=== PATIENT | female | born 1990 | race Caucasian/White ===

== ENCOUNTER 2016-09-17 15:57 | Emergency (ER) | payer OTHER ==
[2016-09-17 16:20] VITALS: RESP 18; TEMP 97.8
[2016-09-17 17:55] LABS: Basophils # (A) 0.1 k/uL (0-0.2); Basophils % (A) 1 %; CH 29.3; CHCM 34.2; Eosinophils # (A) 0.2 k/uL (0-0.7); Eosinophils % (A) 2 %; HCT 41.3 % (34.0-46.0); HDW 2.48; HGB 13.8 gm/dL (11.4-16.0); Luc # (Auto) 0.13; Luc % (Auto) 1; Lymphocytes # (A) 2.9 k/uL (1.0-4.8); Lymphocytes % (A) 33 %; MCH 28.6 pg (25.0-35.0); MCHC 33.3 g/dL (31.0-37.0); Mean Platelet Volume 7.5; Monocytes # (A) 0.4 k/uL (0-1.0); Monocytes % (A) 4 %; Neutrophils # (A) 5.3 k/uL (1.3-7.7); Neutrophils % (A) 59 %; RDW 12.6 % (11.5-15.5); WBC (Perox) 8.88
[2016-09-17 18:04] LABS: ALT 34 U/L (9-52); AST 18 U/L (14-36); Alkaline Phosphatase 73 U/L (38-126); Amylase 41 U/L (30-110); Anion Gap 11 mmol/L; Blood Urea Nitrogen 12 mg/dL (7-17); Calcium 9.9 mg/dL (8.4-10.2); Carbon Dioxide 26 mmol/L (22-30); Chloride 103 mmol/L (98-107); Glucose 95 mg/dL (74-99); Non-African American GFR(MDRD) >60 (>60 ml/min/1.73 sqM); Potassium 4.6 mmol/L (3.5-5.1); Sodium 140 mmol/L (137-145); Total Bilirubin 0.5 mg/dL (0.2-1.3)
--- NOTE | 2016-09-17 19:02 | ED ---
Chest Pain HPI - General Chief Complaint: Chest Pain Stated Complaint: burning sensation in chest Time Seen by Provider: 09/17/16 17:00 Source: patient, RN notes reviewed Mode of arrival: ambulatory Limitations: no limitations - History of Present Illness Initial Comments: This patient is a 25-year-old woman who presents to be evaluate for chest pain which is been going on since last night. She indicates the sternal and right chest. She states the pain is moderate, worse with movement or with palpation, aching and sharp. The patient has not noted any relieving factors. It is currently moderate in intensity. Patient does note that she had been having about a week of cough and congestion. MD Complaint: chest pain -: days(s) Onset: during rest Pain Location: right chest Pain Radiation: none Severity: moderate Quality: aching Consistency: constant Improves With: nothing Worsens With: palpation Context: recent illness Other Symptoms: cough Treatments Prior to Arrival: none - Related Data Home Medications Medication Instructions Recorded Confirmed Atenolol 100 mg PO HS 07/01/15 09/17/16 SUMAtriptan SUCCINATE [Imitrex] 100 mg PO BID PRN 05/31/16 09/17/16 Previous Rx's Medication Instructions Recorded Albuterol Inhaler [Ventolin Hfa 1 - 2 puff INHALATION Q6HR PRN #1 09/17/16 Inhaler] inhaler predniSONE 20 mg PO BID #8 tab 09/17/16 Allergies Allergy/AdvReac Type Severity Reaction Status Date / Time amoxicillin Allergy Unknown Verified 09/17/16 17:01 cinnamon Allergy Unknown Verified 09/17/16 17:01 Penicillins Allergy Rash/Hives Verified 09/17/16 17:01 adhesive AdvReac TEARS SKIN Verified 09/17/16 17:01 Review of Systems ROS Statement: Those systems with pertinent positive or pertinent negative responses have been documented in the HPI. ROS Other: All systems not noted in ROS Statement are negative. Constitutional: Denies: fever, chills Respiratory: Reports: cough. Denies: dyspnea, wheezes, hemoptysis Cardiovascular: Reports: chest pain. Denies: palpitations, edema, syncope Gastrointestinal: Denies: abdominal pain, nausea, vomiting Genitourinary: Denies: dysuria, hematuria Musculoskeletal: Denies: back pain Skin: Denies: rash Neurological: Denies: headache EKG Findings - EKG Comments: EKG Findings:: Patient's EKG shows sinus rhythm with sinus arrhythmia at a rate of 65 bpm. Patient has Q wave and T inversion in lead 3 but these are present on the comparison EKG from July 2015. - EKG Results: EKG: interpreted by BILL, sinus rhythm, normal axis, normal QRS, normal ST/T Past Medical History Past Medical History: Hypertension Additional Past Medical History / Comment(s): MIGRAINES,HTN SINCE AGE 4, DEVIATED SEPTUM History of Any Multi-Drug Resistant Organisms: None Reported Past Surgical History: Cholecystectomy, Tonsillectomy Additional Past Surgical History / Comment(s): NOSE REBROKEN AND SET. Past Anesthesia/Blood Transfusion Reactions: No Reported Reaction Past Psychological History: Anxiety Smoking Status: Never smoker Past Alcohol Use History: None Reported Past Drug Use History: Marijuana Additional Drug Use History / Comment(s): MARIJUANA USE-LAST USE 3 MOS AGO - Past Family History Mother Family Medical History: Asthma, COPD, Hypertension Father History Unknown: Yes General Exam Limitations: no limitations General appearance: alert, in no apparent distress Head exam: Present: atraumatic, normocephalic Eye exam: Present: normal appearance. Absent: scleral icterus, conjunctival injection ENT exam: Present: normal oropharynx Neck exam: Present: normal inspection Respiratory exam: Present: normal lung sounds bilaterally, chest wall tenderness (Palpation of the patient's right upper chest does reliably reproduce her symptoms.). Absent: respiratory distress, wheezes, rales, rhonchi , stridor, accessory muscle use, decreased breath sounds, prolonged expiratory Cardiovascular Exam: Present: regular rate, normal rhythm, normal heart sounds. Absent: systolic murmur, diastolic murmur, rubs, gallop GI/Abdominal exam: Present: soft. Absent: distended, tenderness, guarding, rebound, mass Extremities exam: Present: normal inspection, normal capillary refill. Absent: pedal edema, calf tenderness Back exam: Present: normal inspection. Absent: CVA tenderness (R), CVA tenderness (L) Skin exam: Present: warm, dry, intact, normal color. 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
[2016-09-17 19:16] VITALS: BP 114/75; PULSE 74
--- NOTE | 2016-09-17 22:18 | XR ---
EXAMINATION TYPE: XR chest 1V portable DATE OF EXAM: 09/17/2016 5:50 PM COMPARISON: NONE HISTORY: Heartburn and shortness of breath TECHNIQUE: Single frontal view of the chest is obtained. FINDINGS: There is no focal air space opacity, pleural effusion, or pneumothorax seen. The cardiac silhouette size is within normal limits. The osseous structures are intact. IMPRESSION: No acute process.
== END 2016-09-17 19:16 | disposition home or self-care (01) ==
LOC: EC 15:57
DX: J40 Bronchitis, not specified as acute or chronic (principal); Z79.899 Other long term (current) drug therapy; Z88.0 Allergy status to penicillin; I10 Essential (primary) hypertension
CPT/HCPCS: 36415; 71010; 80053; 82150; 83690; 84484; 85025; 85379; 93005; 99285

== ENCOUNTER 2017-03-12 17:04 | Emergency (ER) | payer OTHER ==
[2017-03-12] MEDS ORDERED: METOCLOPRAMIDE 5 MG/ML 2 ML VIAL IVP STA (17:24)
[2017-03-12] MEDS ORDERED: SODIUM CHLORIDE 0.9% 1,000 ML IV STA (17:24)
[2017-03-12] MEDS ORDERED: diphenhydrAMINE 50 MG/ML 1 ML VIAL IVP STA (17:24)
[2017-03-12] MEDS ORDERED: ACETAMINOPHEN IV (For NPO) 1,000 MG in SALINE 100 100ML.BAG IVPB STA (17:26)
--- NOTE | 2017-03-12 17:27 | ED ---
General Adult HPI - General Chief complaint: Headache Stated complaint: Migraine Time Seen by Provider: 03/12/17 17:13 Source: patient, RN notes reviewed Mode of arrival: ambulatory Limitations: no limitations - History of Present Illness Initial comments: Patient 26-year-old female who is G1, P0, approximately 10 weeks by last menstrual cycle, presents emergency room today with a chief complaint of a migraine headache. Does admit to migraines since age 4. States his headache is consistent with migraine headache that started 5 days ago. Does admit some nausea no vomiting. Patient states she stopped taking medications of Imitrex when she found out that she was . States that she was stopped taking caffeine as well. States she was taking energy drinks. Patient states that headache and symptoms are consistent with migraines that she's had in the past. She does admit to a history of high blood pressure but states that she is no longer taking atenolol as her blood pressure was doing well. She states she did notice that her blood pressure was elevated at triage. She denies any vaginal bleeding or discharge. Denies any abdominal pain. Denies any other complaints or symptoms at this time. Patient denies any recent fever, chills, shortness of breath, chest pain, back pain, vomiting, numbness or tingling, dysuria or hematuria, constipation or diarrhea, visual changes, or any other complaints. - Related Data Home Medications Medication Instructions Recorded Confirmed Ergocalciferol (Vitamin D2) 50,000 unit PO TU 03/12/17 03/12/17 [Vitamin D2] [id number]-[id number] Acid 1 cap PO DAILY 03/12/17 03/12/17 [-U Capsule (formulary)] Allergies Allergy/AdvReac Type Severity Reaction Status Date / Time amoxicillin Allergy Rash/Hives Verified 03/12/17 17:20 cinnamon Allergy Rash/Hives Verified 03/12/17 17:20 Penicillins Allergy Rash/Hives Verified 03/12/17 17:20 adhesive AdvReac TEARS SKIN Verified 03/12/17 17:20 Review of Systems ROS Statement: Those systems with pertinent positive or pertinent negative responses have been documented in the HPI. ROS Other: All systems not noted in ROS Statement are negative. Past Medical History Past Medical History: Hypertension Additional Past Medical History / Comment(s): MIGRAINES,HTN SINCE AGE 4, DEVIATED SEPTUM History of Any Multi-Drug Resistant Organisms: None Reported Past Surgical History: Cholecystectomy, Tonsillectomy Additional Past Surgical History / Comment(s): NOSE REBROKEN AND SET. Past Anesthesia/Blood Transfusion Reactions: No Reported Reaction Past Psychological History: Anxiety Smoking Status: Never smoker Past Alcohol Use History: None Reported Past Drug Use History: None Reported - Past Family History Mother Family Medical History: Asthma, COPD, Hypertension Father History Unknown: Yes General Exam - General Exam Comments Initial Comments: General: The patient is awake and alert, in no distress, and does not appear acutely ill. Eye: Pupils are equal, round and reactive to light, extra-ocular movements are intact. No nystagmus. There is normal conjunctiva bilaterally. No signs of icterus. Ears, nose, mouth and throat: There are moist mucous membranes and no oral lesions. Neck: The neck is supple, there is no tenderness or JVD. Cardiovascular: There is a regular rate and rhythm. No murmur, rub or gallop is appreciated. Respiratory: Lungs are clear to auscultation, respirations are non-labored, breath sounds are equal. No wheezes, stridor, rales, or rhonchi. Gastrointestinal: Soft, non-distended, non-tender abdomen without masses or organomegaly noted. There is no rebound or guarding present. No CVA tenderness. Bowel sounds are unremarkable. Musculoskeletal: Normal ROM, no tenderness. Strength 5/5. Sensation intact. Pulses equal bilaterally 2+. Neurological: A&O x 3. CN II-XII intact, There are no obvious motor or sensory deficits. Coordination appears grossly intact. Speech is normal. Skin: Skin is warm and dry and no rashes or lesions are noted. Psychiatric: Cooperative, appropriate mood & affect, normal judgment. Limitations: no limitations Course Vital Signs 03/12/17 03/12/17 03/12/17 17:07 18:09 18:23 Temperature 98.9 F Pulse Rate 112 H 109 H 98 Respiratory 20 18 17 Rate Blood Pressure 177/94 144/74 127/71 O2 Sat by Pulse 99 94 L 93 L Oximetry Medical Decision Making - Medical Decision Making Case discussed in detail with attending physician Dr. Gonzalez. Patient reexamined at this time shows no signs of distress. Patient does admit to a history of migraine headaches. Feeling better after Reglan, Benadryl, and IV Tylenol. Patient given fluid boluses well. Patient's blood pressure improved back down to normal range of 127/95. She does admit that she was on atenolol the past to talk to her family doctor about it was stopped. She admits she was losing weight at this time. Advised to follow back up with family doctor to see if it is necessary to go back on blood pressure medication. Patient does admit that she started vitamin. Patient will be discharged home with prescription written nausea. Her [facility]. Advised return for concerns. - Lab Data Result diagrams: 03/12/17 17:48 03/12/17 17:48 Lab Results 03/12/17 03/12/17 03/12/17 Range/Units 17:48 17:48 17:48 WBC 10.9 H (3.8-10.6) k/uL RBC 5.03 (3.80-5.40) m/uL Hgb 14.5 (11.4-16.0) gm/dL Hct 41.8 (34.0-46.0) % MCV 83.2 (80.0-100.0) fL MCH 28.8 (25.0-35.0) pg MCHC 34.6 (31.0-37.0) g/dL RDW 14.1 (11.5-15.5) % Plt Count 286 (150-450) k/uL Neutrophils % 81 % Lymphocytes % 14 % Monocytes % 3 % Eosinophils % 0 % Basophils % 0 % Neutrophils # 8.8 H (1.3-7.7) k/uL Lymphocytes # 1.5 (1.0-4.8) k/uL Monocytes # 0.4 (0-1.0) k/uL Eosinophils # 0.0 (0-0.7) k/uL Basophils # 0.0 (0-0.2) k/uL Sodium 135 L (137-145) mmol/L Potassium 4.0 (3.5-5.1) mmol/L Chloride 101 (98-107) mmol/L Carbon Dioxide 20 L (22-30) mmol/L Anion Gap 14 mmol/L BUN 7 (7-17) mg/dL Creatinine 0.60 (0.52-1.04) mg/dL Est GFR (MDRD) Af Amer >60 (>60 ml/min/1.73 sqM) Est GFR (MDRD) Non-Af >60 (>60 ml/min/1.73 sqM) Glucose 108 H (74-99) mg/dL Calcium 9.8 (8.4-10.2) mg/dL Total Bilirubin 0.4 (0.2-1.3) mg/dL AST 24 (14-36) U/L ALT 51 (9-52) U/L Alkaline Phosphatase 91 (38-126) U/L Total Protein 7.0 (6.3-8.2) g/dL Albumin 4.2 (3.5-5.0) g/dL Urine Color Yellow Urine Appearance Turbid H (Clear) Urine pH 8.0 (5.0-8.0) Ur Specific [place] 1.020 (1.001-1.035) Urine Protein Trace H (Negative) Urine Glucose (UA) Negative (Negative) Urine Ketones Negative (Negative) Urine Blood Negative (Negative) Urine Nitrite Negative (Negative) Urine Bilirubin Negative (Negative) Urine Urobilinogen <2.0 (<2.0) mg/dL Ur Leukocyte Esterase Small H (Negative) Urine WBC 7 H (0-5) /hpf Ur Squamous Epith Cells 8 H (0-4) /hpf Amorphous Sediment Moderate H (None) /hpf Urine Mucus Rare H (None) /hpf Disposition Clinical Impression: Migraine Disposition: HOME SELF-CARE Condition: Good Instructions: Migraine Headache (ED) Additional Instructions: Please use medication as discussed. Please follow-up with [facility]/family doctor in the next 2 days. Please return to emergency room if the symptoms increase or worsen or for any other concerns. Referrals: Wing Nuñez MD [Primary Care Provider] - 1-2 days Time of Disposition: 18:50
[2017-03-12 18:07] LABS: Basophils % (A) 0 %; Eosinophils % (A) 0 %; HCT 41.8 % (34.0-46.0); HDW 2.46; HGB 14.5 gm/dL (11.4-16.0); Luc # (Auto) 0.16; Luc % (Auto) 1; Lymphocytes # (A) 1.5 k/uL (1.0-4.8); Lymphocytes % (A) 14 %; MCH 28.8 pg (25.0-35.0); MCHC 34.6 g/dL (31.0-37.0); MCV 83.2 fL (80.0-100.0); Mean Platelet Volume 7.6; Monocytes # (A) 0.4 k/uL (0-1.0); Monocytes % (A) 3 %; Neutrophils # (A) 8.8 k/uL (1.3-7.7); Neutrophils % (A) 81 %; RBC 5.03 m/uL (3.80-5.40); RDW 14.1 % (11.5-15.5); WBC 10.9 k/uL (3.8-10.6); WBC (Perox) 10.58
[2017-03-12 18:12] LABS: Amorphous Sediment,Urine Moderate /hpf; Appearance,Urine Turbid (Clear); Bilirubin,Urine Negative (Negative); Glucose,Urine (UA) Negative (Negative); Ketones,Urine Negative (Negative); Leukocyte Esterase,Urine Small (Negative); Mucus,Urine Rare /hpf; Nitrite,Urine Negative (Negative); Particle Count 21718; Protein,Urine Trace (Negative); Squamous Epithelial Cell,Urine 8 /hpf (0-4); UA Billing (MACRO vs. MICRO) MICRO; Urobilinogen,Urine <2.0 mg/dL (<2.0); WBC,Urine 7 /hpf (0-5)
[2017-03-12 18:20] LABS: ALT 51 U/L (9-52); AST 24 U/L (14-36); Alkaline Phosphatase 91 U/L (38-126); Anion Gap 14 mmol/L; Blood Urea Nitrogen 7 mg/dL (7-17); Calcium 9.8 mg/dL (8.4-10.2); Carbon Dioxide 20 mmol/L (22-30); Chloride 101 mmol/L (98-107); Glucose 108 mg/dL (74-99); Non-African American GFR(MDRD) >60 (>60 ml/min/1.73 sqM); Sodium 135 mmol/L (137-145); Total Bilirubin 0.4 mg/dL (0.2-1.3)
[2017-03-12 19:00] VITALS: BP 119/61; PULSE 90; RESP 18; TEMP 98.3
== END 2017-03-12 19:00 | disposition home or self-care (01) ==
LOC: EC 17:04
DX: O99.351 Diseases of the nervous system complicating pregnancy, first trimester (principal); G43.909 Migraine, unspecified, not intractable, without status migrainosus; Z88.0 Allergy status to penicillin; Z91.048 Other nonmedicinal substance allergy status; Z88.8 Allergy status to other drugs, medicaments and biological substances; Z3A.10 10 weeks gestation of pregnancy; Z79.899 Other long term (current) drug therapy
CPT/HCPCS: 36415; 80053; 85025; 81001; 84702; 87086; 99283; 96365; 96375 ×2; 96361; J1200; J2765; J0131

== ENCOUNTER → 2017-04-02 | Outpatient (CLI) | payer OTHER ==
--- NOTE | 2017-04-02 15:36 | US ---
EXAMINATION TYPE: US OB <= 14 wk fetus DATE OF EXAM: 04/02/2017 COMPARISON: NONE CLINICAL HISTORY: Z36 Confirm dates. Confirm dates, 1 EXAM PERFORMED: Transabdominal (TA) EXAM MEASUREMENTS: GESTATIONAL AGE / DATING Physician Established: (13 weeks/2 days) EDC: 10/06/2017 Dates by LMP: Unknown Dates by First Scan: This is 1st scan Dates by Current Scan for: (13 weeks/ 1 days) EDC: 10/07/2017 MATERNAL ANATOMY Uterus: 14.0 x 7.7 x 9.5cm, anteverted Right Ovary: 3.2 x 2.3 x 2.0cm Left Ovary: 3.0 x 1.6 x 2.3cm Post CDS / Adnexa: wnl Presence of free fluid: no Presence of corpus luteal cyst: not seen at this time Presence of subchorionic bleed: no GESTATION / SURVEY CRL: 6.8cm (13 weeks/1 days) Yolk Sac (normal less than 6mm): not seen at this time Heart Rate: 152 bpm Rhythm: Normal IUP: Viable IUP Date of LMP: Unknown Beta HcG (if available): Not available at time of exam IMPRESSION: Viable single IUP measuring 13 weeks 1 day with a heart rate of 152bpm and an estimated delivery date of 10/07/2017.
[2017-04-02 15:40] LABS: Appearance,Urine Clear (Clear); Bilirubin,Urine Negative (Negative); CH 29.2; CHCM 34.4; Glucose,Urine (UA) Negative (Negative); HDW 2.44; HGB 12.5 gm/dL (11.4-16.0); Ketones,Urine Negative (Negative); Leukocyte Esterase,Urine Negative (Negative); MCH 28.2 pg (25.0-35.0); MCV 85.4 fL (80.0-100.0); Mean Platelet Volume 7.7; Nitrite,Urine Negative (Negative); PH, Urine 6.5 (5.0-8.0); Protein,Urine Negative (Negative); RBC 4.45 m/uL (3.80-5.40); UA Billing (MACRO vs. MICRO) CHEM; Urobilinogen,Urine <2.0 mg/dL (<2.0); WBC 10.1 k/uL (3.8-10.6)
[2017-04-02 16:01] LABS: Specific Gravity,Urine 1.005 (1.001-1.035)
[2017-04-02 16:04] LABS: Glucose 89 mg/dL (74-99); Non-African American GFR(MDRD) >60 (>60 ml/min/1.73 sqM)
[2017-04-02 16:36] LABS: Hepatitis B Surface Ag Index 0.04
== END | disposition home or self-care (01) ==
LOC: RADUSWWP 14:39
PROVIDERS: ATTEND Obstetrics & Gynecology
DX: Z36 Encounter for antenatal screening of mother (principal); Z34.01 Encounter for supervision of normal first pregnancy, first trimester; Z3A.00 Weeks of gestation of pregnancy not specified
CPT/HCPCS: 36415; 76801; 81003; 82565; 82947; 85027; 86762; 86780; 86850; 86900; 86901; 87086; 87340; 87491; 87591

== ENCOUNTER 2017-06-30 20:38 | Outpatient (CLI) | payer OTHER ==
[2017-06-30 22:28] VITALS: PULSE 92; RESP 18; TEMP 98.1
--- NOTE | 2017-07-01 05:05 | P.MSEPDOC ---
Presenting Problems - Arrival Data Date of Arrival on Unit: 06/30/17 Time of Arrival on Unit: 20:40 Mode of Transport: Ambulatory - Complaint OB-Reason for Admission/Chief Complaint: Vaginal Bleeding, Pain Comment: spotting and vaginal pain Medical History - Information : 1 Para: 0 Term: 0 : 0 Abortions: Spontaneous or Elective: 0 Number of Living Children: 0 - Gestational Age Gestational Age by PARI (wks/days): 26 Weeks and 0 Days - History Complications: Smoker Review of Systems - Review of Systems Constitutional: No problems Breast: No problems ENT: No problems Cardiovascular: No problems Respiratory: No problems Gastrointestinal: No problems Genitourinary: No problems Musculoskeletal: No problems Neurological: No problems Skin: No problems Vital Signs - Temperature Temperature: 98.1 F Temperature Source: Tympanic - Pulse Right Brachial Pulse Rate: 92 Pulse Assessment Method: Automatic Cuff - Respirations Respiratory Rate: 18 Oxygen Delivery Method: Room Air Medical Screen Scoring (Pre) - Cervical Exam Dilation: 0 cm = 0 Membranes: Intact - Uterine Contractions Frequency: N/A Duration: N/A Intensity: N/A - Maternal Vital Signs Maternal Temperature: N/A Maternal Blood Pressure: N/A Signs of Preeclampsia: N/A Maternal Respirations: N/A - Pain Assessment Pain Scale Used: Numeric (1 - 10) Pain Intensity: 6 Pain Description: *Acute Pain Radiation Location: none Pain Frequency: Intermittent Pain Duration: 60 Pain Duration Units: Minutes Pain Behavior: Vocalization - Maternal Trauma Maternal Trauma: N/A - Assessment Baseline FHR: 145 Heart Rate - NICHD Category: Category I (Normal) = 0 Position: N/A Station: N/A - Total Score Total Score (Pre): 0 - Level of Risk Level of Risk: Low (0-5) Physician Notification (Pre) - Physician Notified Physician Notified Date: 06/30/17 Physician Notified Time: 21:27 Physician/Practitioner Notifed:: Dr. Huertas Spoke With: Dr. Huertas New Order Received: Yes - Notification Comment Comment: discharge pt home if cervical exam is high/thick/closed Disposition - Disposition OB Disposition: Discharge to home, Written follow up instructions reviewed Discharge Date: 06/30/17 Discharge Time: 21:55 I agree with the RN Medical Screening Exam: Yes Risk & Benefit of care provided described in d/c instruction: Yes Diagnosis: PELVIC AND PERINEAL PAIN
== END 2017-06-30 21:55 | disposition home or self-care (01) ==
LOC: FBPOP 20:38
PROVIDERS: ATTEND Obstetrics & Gynecology
DX: O99.89 Other specified diseases and conditions complicating pregnancy, childbirth and the puerperium (principal); R10.2 Pelvic and perineal pain; Z3A.26 26 weeks gestation of pregnancy
CPT/HCPCS: 99213

== ENCOUNTER 2017-07-31 14:27 | Outpatient (CLI) | payer OTHER ==
[2017-07-31] MEDS ORDERED: LABETALOL 200 MG TAB PO STA (14:50)
[2017-07-31 15:07] LABS: Appearance,Urine Clear (Clear); Bacteria,Urine Rare /hpf; Bilirubin,Urine Negative (Negative); Blood,Urine Negative (Negative); Color,Urine Yellow; Glucose,Urine (UA) Negative (Negative); Ketones,Urine Negative (Negative); Leukocyte Esterase,Urine Small (Negative); Mucus,Urine Rare /hpf; Nitrite,Urine Negative (Negative); PH, Urine 5.5 (5.0-8.0); Protein,Urine Negative (Negative); RBC,Urine <1 /hpf (0-5); Specific Gravity,Urine 1.014 (1.001-1.035); Squamous Epithelial Cell,Urine 4 /hpf (0-4); Urobilinogen,Urine <2.0 mg/dL (<2.0); WBC,Urine 7 /hpf (0-5)
[2017-07-31 15:39] LABS: Basophils % (A) 0 %; Eosinophils # (A) 0.1 k/uL (0-0.7); Eosinophils % (A) 1 %; HCT 38.2 % (34.0-46.0); HGB 12.4 gm/dL (11.4-16.0); Lymphocytes % (A) 22 %; MCH 27.9 pg (25.0-35.0); MCHC 32.5 g/dL (31.0-37.0); MCV 85.8 fL (80.0-100.0); Mean Platelet Volume 7.4; Monocytes # (A) 0.5 k/uL (0-1.0); Monocytes % (A) 5 %; Neutrophils # (A) 6.4 k/uL (1.3-7.7); Neutrophils % (A) 70 %; Platelet Count 242 k/uL (150-450); RBC 4.46 m/uL (3.80-5.40); RDW 14.1 % (11.5-15.5); WBC 9.1 k/uL (3.8-10.6)
[2017-07-31 15:49] LABS: ALT 41 U/L (9-52); AST 19 U/L (14-36); Blood Urea Nitrogen 8 mg/dL (7-17); LDH 367 U/L (313-618); Uric Acid 4.5 mg/dL (3.7-7.4)
--- NOTE | 2017-10-05 10:46 | P.MSEPDOC ---
Presenting Problems - Arrival Data Date of Arrival on Unit: 07/31/17 Time of Arrival on Unit: 14:28 Mode of Transport: Ambulatory Medical History - Information : 1 Para: 0 Term: 0 : 0 Abortions: Spontaneous or Elective: 0 Number of Living Children: 0 - Gestational Age Gestational Age by PARI (wks/days): 30 Weeks and 3 Days Disposition - Disposition Discharge Date: 07/31/17 Discharge Time: 16:00 I agree with the RN Medical Screening Exam: Yes Risk & Benefit of care provided described in d/c instruction: Yes Diagnosis: RELATED CONDITIONS, UNSPECIFIED, SECOND TRIMESTER ( hypertensive change)
== END 2017-07-31 16:00 | disposition home or self-care (01) ==
LOC: FBPOP 14:27
PROVIDERS: ATTEND Obstetrics & Gynecology
DX: O16.2 Unspecified maternal hypertension, second trimester (principal); Z3A.30 30 weeks gestation of pregnancy
CPT/HCPCS: 59025; 82565; 83615; 84450; 84460; 84520; 84550; 85025; 81001; G0463; 99215

== ENCOUNTER 2017-09-14 20:52 | Outpatient (CLI) | payer OTHER ==
[2017-09-14 21:31] VITALS: BP 140/88; PULSE 98; RESP 16; TEMP 98.1
--- NOTE | 2017-09-15 06:51 | P.MSEPDOC ---
Presenting Problems - Arrival Data Date of Arrival on Unit: 09/14/17 Time of Arrival on Unit: 20:52 Mode of Transport: Wheelchair - Complaint OB-Reason for Admission/Chief Complaint: Possible Onset of Labor Comment: contractions since 0 every 10 minutes Medical History - Information : 1 Para: 0 Term: 0 : 0 Abortions: Spontaneous or Elective: 0 Number of Living Children: 0 - Gestational Age Gestational Age by PARI (wks/days): 36 Weeks and 6 Days Review of Systems - Review of Systems Constitutional: No problems Breast: No problems ENT: No problems Cardiovascular: No problems Respiratory: No problems Gastrointestinal: No problems Genitourinary: No problems Musculoskeletal: No problems Neurological: No problems Skin: No problems Vital Signs - Temperature Temperature: 98.1 F Temperature Source: Temporal Artery Scan - Pulse Right Brachial Pulse Rate: 98 Pulse Assessment Method: Automatic Cuff - Respirations Respiratory Rate: 16 Oxygen Delivery Method: Room Air O2 Sat by Pulse Oximetry: 97 - Blood Pressure Right Arm Blood Pressure: 140/88 Blood Pressure Mean: 105 Blood Pressure Source: Automatic Cuff Medical Screen Scoring (Pre) - Cervical Exam Dilation: 1-3 cm = 1 - Uterine Contractions Frequency: > 5 minutes apart = 1 Duration: N/A Intensity: N/A - Maternal Vital Signs Maternal Temperature: N/A Maternal Respirations: N/A - Pain Assessment Pain Intensity: 0 - Assessment Baseline FHR: 135 Heart Rate - NICHD Category: Category I (Normal) = 0 NST: Reactive - Total Score Total Score (Pre): 2 - Level of Risk Level of Risk: Low (0-5) Medical Screen Scoring (Post) - Cervical Exam Dilation: 1-3 cm = 1 - Uterine Contractions Frequency: > 5 minutes apart = 1 - Maternal Vital Signs Maternal Temperature: N/A Maternal Respirations: N/A - Pain Assessment Pain Intensity: 0 - Assessment Heart Rate: 135 Heart Rate - NICHD Category: Category I (Normal) = 0 NST: Reactive Position: N/A Station: N/A - Total Score Total Score (Post): 2 - Post Treatment Level of Risk Post Treatment Level of Risk: Low (0-5) Physician Notification (Post) - Physician Notified Physician Notified Date: 09/14/17 Physician Notified Time: 22:00 Spoke With: Huertas New Order Received: Yes - Notification Comment Comment: No cervical change, follow up Saturday as scheduled with Dr. Clark Disposition - Disposition OB Disposition: Discharge to home Discharge Date: 09/14/17 Discharge Time: 22:02 I agree with the RN Medical Screening Exam: Yes Risk & Benefit of care provided described in d/c instruction: Yes Diagnosis: FALSE LABOR AT OR AFTER 37 COMPLETED WEEKS OF GESTATION
== END 2017-09-14 22:02 | disposition home or self-care (01) ==
LOC: FBPOP 20:52
PROVIDERS: ATTEND Obstetrics & Gynecology
DX: O47.1 False labor at or after 37 completed weeks of gestation (principal); Z3A.36 36 weeks gestation of pregnancy
CPT/HCPCS: 59025; G0463; 99213

== ENCOUNTER → 2017-11-26 | Outpatient (CLI) | payer OTHER | END | disposition home or self-care (01) | LOC: LABWHC1 13:13 | PROVIDERS: ATTEND Obstetrics & Gynecology | DX: Z34.90 Encounter for supervision of normal pregnancy, unspecified, unspecified trimester (principal) | CPT/HCPCS: 36415; 84702 ==

== ENCOUNTER → 2018-08-23 | Outpatient (CLI) | payer OTHER ==
--- NOTE | 2018-08-24 21:09 | MR ---
EXAMINATION TYPE: MR brain wo con DATE OF EXAM: 08/23/2018 COMPARISON: NONE HISTORY: 27-year-old female Intermittent Headaches / Hx migraines TECHNIQUE: Multiplanar, multisequence images of the brain and brainstem without IV contrast. Diffusi on weighted imaging is performed. FINDINGS: No evidence for acute infarction, hemorrhage, mass, mass effect, midline shift, herniation, effacemen t of basal cisterns, or extra-axial fluid collection. The ventricles and sulci are age-appropriate. Major intracranial flow voids are intact. T2/FLAIR weighted sequences show a few 4 mm smaller right signal foci in the subcortical regions of b oth cerebral hemispheres. On coronal series, there have any elongated configuration suggesting small perivascular spaces, for example, refer to coronal image 21 and 24. Small 4 mm focus in the subcortical region of the left temporal lobe is nonspecific. Midline structures demonstrate normal morphology. The craniocervical junction is normal. The visualized sinuses are clear and the globes are intact. Some scattered nonspecific prominent intraparotid lymph nodes measure up to 4 mm and are probably jaya ctive/post inflammatory. Paranasal sinuses appear clear. Slight rightward nasal septal deviation. Esther bes are intact. IMPRESSION: 1. Scattered tiny foci of bright T2 signal, the majority of which have an elongated appearance on cor onal series suggesting prominent perivascular spaces which is normal. A couple 4 mm subcortical foci could represent trace burden of ischemic demyelination in the setting of chronic migraines. Follow-up can be performed. 2. Otherwise, no intracranial abnormality seen.
== END | disposition home or self-care (01) ==
LOC: RADMRIMAIN 12:55
PROVIDERS: ATTEND Family Medicine
DX: R90.89 Other abnormal findings on diagnostic imaging of central nervous system (principal); Z86.69 Personal history of other diseases of the nervous system and sense organs
CPT/HCPCS: 70551

== ENCOUNTER → 2020-09-01 | Outpatient (CLI) | payer OTHER ==
--- NOTE | 2020-09-02 06:56 | US ---
EXAMINATION TYPE: US pelvic complete DATE OF EXAM: 09/01/2020 COMPARISON: NONE CLINICAL HISTORY: N92.6 IRREGULAR MENSES. Pt states irregular menses TECHNIQUE: Transabdominal (TA). Transabdominal sonographic images of the pelvis were acquired. Date of LMP: 07/18/2020 EXAM MEASUREMENTS: Uterus: 11.0 x 2.9 x 3.5 cm Endometrial Stripe: 0.4 cm Right Ovary: 2.8 x 2.4 x 2.2 cm Left Ovary: 2.2 x 2.6 x 1.9 cm 1. Uterus: Anteverted Appeared wnl 2. Endometrium: wnl 3. Right Ovary: Scattered irregular small thin-walled cysts or prominent follicles 4. Left Ovary: Scattered irregular small thin-walled cyst or prominent follicles 5. Bilateral Adnexa: Possible tubular structure left adnexa ?fluid-filled fallopian tube 6. Posterior cul-de-sac: wnl Heterogeneous anteverted uterus. Endometrium is thinned for secretory phase of menstrual cycle. Dilat ed fluid-filled left fallopian tube noted extending from the left uterine margin. IMPRESSION: Abnormal thinned endometrium could warrant further clinical and lab workup. Suspicion for left-sided hydrosalpinx. Suboptimal study as transvaginal investigation was not performed to better evaluate.
== END | disposition home or self-care (01) ==
LOC: RADUSWWP 15:28
PROVIDERS: ATTEND Family Medicine
DX: N85.8 Other specified noninflammatory disorders of uterus (principal)
CPT/HCPCS: 76856

== ENCOUNTER → 2021-09-29 | Outpatient (CLI) | payer OTHER ==
--- NOTE | 2021-09-29 14:48 | US ---
EXAMINATION TYPE: US renal artery duplex complete DATE OF EXAM: 09/29/2021 COMPARISON: NONE CLINICAL HISTORY: I10 Essential hypertension. HTN x 4 years , takes medication; Migraines and anxiety and takes medication for these other diagnoses; Ht 5'5, WT 310lb. US exam is technically limited by very large body habitus. MEASUREMENTS: RENAL SIZE: Rt Kidney: 11.9 x 6.3 x 5.3cm Lt Kidney: 11.9 x 6.3 x 5.3cm RESISTANCE INDEX Right: 0.57 Left: 0.59 RA/AO RATIO (< 3.5 ) Right: 1.3 Left: 1.1 RA VELOCITY ( < 180 cm/s) Right: 114.4cm/s mid Left: 53.4cm/s mid Aorta size is wnl. Bilateral Renal US: no hydronephrosis or renal masses are seen. Renal Artery Duplex values are wnl bilaterally. IMPRESSION: 1. No suspicious changes to suggest renal artery stenosis.
== END | disposition home or self-care (01) ==
LOC: RADUSWWP 08:43
PROVIDERS: ATTEND Family Medicine
DX: I10 Essential (primary) hypertension (principal)
CPT/HCPCS: 93975

== ENCOUNTER 2023-02-26 16:08 | Emergency (ER) | payer OTHER ==
[2023-02-26 16:21] VITALS: RESP 18; TEMP 98.3
[2023-02-26] MEDS ORDERED: KETOROLAC 15 MG/ML 1 ML VIAL IM STA (17:27)
--- NOTE | 2023-02-26 17:45 | ED ---
Upper Extremity HPI - General Chief Complaint: Extremity Injury, Upper Stated Complaint: Rt hand injury Time Seen by Provider: 02/26/23 17:13 Source: patient, RN notes reviewed Mode of arrival: ambulatory - History of Present Illness Initial Comments: This is a 32-year-old female who presents to the emergency department for a right hand injury. States earlier today, she slammed her middle 3 fingers in a car door. She has since had pain and difficulty moving the fingers due to the pain. She took a marijuana edible from her brother, which did help with the pain. She did have a minor cut to the middle finger, but states that this has stopped bleeding and the cut itself is not particularly painful. Tetanus vaccine is up to date. Denies any fevers, chills, sore throat, cough, dyspnea, chest pain, palpitations, abdominal pain, nausea, vomiting, diarrhea, back pain, or headaches. MD Complaint: Injury to:: right, hand - Related Data Home Medications Medication Instructions Recorded Confirmed Bqz-Jcts-Vitim Acid 1 cap PO DAILY 03/12/17 10/01/17 [-U Capsule (formulary)] Labetalol [Trandate] 200 mg PO BID 06/30/17 10/01/17 Previous Rx's Medication Instructions Recorded Acetaminophen-Codeine 300-30mg 1 tab PO Q4H PRN #30 tablet 10/04/17 [Tylenol #3] Docusate [Colace] 100 mg PO DAILY #30 capsule 10/04/17 Ibuprofen [Motrin] 600 mg PO Q6HR PRN #30 tab 10/04/17 Allergies Allergy/AdvReac Type Severity Reaction Status Date / Time amoxicillin Allergy Rash/Hives Verified 02/26/23 16:14 bee venom protein (honey bee) Allergy Swelling Verified 02/26/23 16:14 cinnamon Allergy Rash/Hives Verified 02/26/23 16:14 Penicillins Allergy Rash/Hives Verified 02/26/23 16:14 adhesive AdvReac TEARS SKIN Verified 02/26/23 16:14 Review of Systems ROS Statement: Those systems with pertinent positive or pertinent negative responses have been documented in the HPI. ROS Other: All systems not noted in ROS Statement are negative. Past Medical History Past Medical History: Asthma, Hypertension Additional Past Medical History / Comment(s): MIGRAINES,HTN SINCE AGE 4,DEVIATED SEPTUM History of Any Multi-Drug Resistant Organisms: None Reported Past Surgical History: Cholecystectomy, Tonsillectomy Additional Past Surgical History / Comment(s): NOSE REBROKEN AND SET. septoplasty Past Anesthesia/Blood Transfusion Reactions: No Reported Reaction Past Psychological History: ADD/ADHD, Anxiety Past Alcohol Use History: Rare Past Drug Use History: Marijuana - Past Family History Mother Family Medical History: Asthma, COPD, Hypertension Father History Unknown: Yes General Exam Limitations: no limitations General appearance: alert, in no apparent distress Head exam: Present: atraumatic, normocephalic, normal inspection Respiratory exam: Present: normal lung sounds bilaterally. Absent: respiratory distress, wheezes, rales, rhonchi, stridor Cardiovascular Exam: Present: regular rate, normal rhythm, normal heart sounds. Absent: systolic murmur, diastolic murmur, rubs, gallop, clicks Extremities exam: Present: other (Limited active range of motion of the middle 3 fingers secondary to pain. Minor 1 cm horizontal laceration to the ventral aspect of the right middle finger. No active bleeding. Capillary refill <1 second.) Neurological exam: Present: alert, oriented X3, CN II-XII intact Psychiatric exam: Present: normal affect, normal mood Course Vital Signs 02/26/23 02/26/23 16:14 18:23 Temperature 98.3 F Pulse Rate 123 H 112 H Respiratory 18 18 Rate Blood Pressure 168/98 140/62 O2 Sat by Pulse 96 99 Oximetry Medical Decision Making - Medical Decision Making This is a 32-year-old female who presents to the emergency department for a right hand injury. Was pt. sent in by a medical professional or institution? @ -No Did you speak to anyone other than the patient for history? @ -No Did you review nursing and triage notes? @ -Yes, and I agree, it is accurate with regards to the patient's symptoms. Were old charts reviewed? @ -No Differential Diagnosis? @ -Differential Hand/Finger Injury: Fracture, dislocation, contusion, sprain, this is not meant to be an all- inclusive list. EKG interpreted by me (3pts min.)? @ -Not obtained X-rays interpreted by me (1pt min.)? @ -X-ray of the right hand obtained. My interpretation identifies no acute fractures or dislocations. CT interpreted by me (1pt min.)? @ -Not obtained U/S interpreted by me (1pt. min.)? @ -Not obtained What testing was considered but not performed? (CT, X-rays, U/S, labs)? Why? @ -None What meds were considered but not given? Why? @ -None Did you discuss the management of the patient with other professionals? @ -No Did you reconcile home meds? @ -No Was smoking cessation discussed for >3mins.? @ -No Was critical care preformed (if so, how long)? @ -No Were there social determinants of health that impacted care today? How? (Homelessness, low income, unemployed, alcoholism, drug addiction, transportation, low edu. Level, literacy, decrease access to med. care, shelter, rehab)? @ -No Was there de-escalation of care discussed even if they declined? (Discuss DNR or withdrawal of care, Hospice)? @ -No What co-morbidities impacted this encounter? (DM, HTN, Smoking, COPD, CAD, Cancer, CVA, Hep., AIDS, mental health diagnosis, sleep apnea, morbid obesity)? @ -None Was patient admitted / discharged? @ -Discharged. X-ray of the right hand obtained revealing no acute process. She was given a dose of Toradol in the emergency department, which was helpful. Her hand was also wrapped with an Manav bandage for comfort purposes. Advised she alternate with ibuprofen and Tylenol as needed for pain relief and apply ice for 15-20 minutes every 2-3 hours. Undiagnosed new problem with uncertain prognosis? @ -None Drug Therapy requiring intensive monitoring for toxicity (Heparin, Nitro, Insulin, Cardizem)? @ -None Were any procedures done? @ -None Diagnosis/symptom? @ -Right hand injury Acute, or Chronic, or Acute on Chronic? @ -Acute Uncomplicated (without systemic symptoms) or Complicated (systemic symptoms)? @ -Uncomplicated Side effects of treatment? @ -None Exacerbation, Progression, or Severe Exacerbation] @ -Not applicable Poses a threat to life or bodily function? @ -No Return precautions reviewed in depth, the patient is instructed to return to the emergency department with any new, worsening, or concerning symptoms. Patient verbalized understanding. This case was discussed in detail with the attending ED physician, Dr. Larkin. Presentation, findings, and treatment plan discussed in detail as well. - Radiology Data Radiology results: report reviewed, image reviewed Disposition Clinical Impression: Contusion of right hand Disposition: HOME SELF-CARE Instructions (If sedation given, give patient instructions): Finger Sprain (ED) Additional Instructions: Return to the emergency department with any new, worsening, or concerning symptoms. Alternate with ibuprofen and Tylenol as needed for pain relief. Apply ice for 15-20 minutes every 2-3 hours. Follow up with your primary care provider in 1-2 days. Is patient prescribed a controlled substance at d/c from ED?: No Referrals: Shira Diggs MD [Primary Care Provider] - 1-2 days Forms: Work/School Release
--- NOTE | 2023-02-26 17:48 | XR ---
EXAMINATION TYPE: XR hand complete RT DATE OF EXAM: 02/26/2023 5:35 PM INDICATION: Patient age:Female; 32 years old; Reason for study: Hand injury; PHH. COMPARISON: None TECHNIQUE: Frontal, lateral and oblique views of the right hand were obtained. FINDINGS: Normal alignment of the visualized joints. No acute osseous pathology is identified. No e vidence of soft tissue swelling. IMPRESSION: No acute osseous pathology.
[2023-02-26] MEDS ORDERED: ACET/COD 300 MG/30 MG STARTER PACK 6 TAB BTL PO STA (18:06)
[2023-02-26] MEDS ORDERED: IBUPROFEN 600 MG STARTER PACK 4 TAB BTL PO STA (18:06)
[2023-02-26 18:28] VITALS: BP 140/62; PULSE 112
== END 2023-02-26 18:29 | disposition home or self-care (01) ==
LOC: EC 16:08
DX: S61.212A Laceration without foreign body of right middle finger without damage to nail, initial encounter (principal); I10 Essential (primary) hypertension; J45.909 Unspecified asthma, uncomplicated; F12.90 Cannabis use, unspecified, uncomplicated; Z79.899 Other long term (current) drug therapy; Z88.0 Allergy status to penicillin; Z91.030 Bee allergy status; Z91.018 Allergy to other foods; W23.0XXA Caught, crushed, jammed, or pinched between moving objects, initial encounter
CPT/HCPCS: 73130; 99283; 96372; J1885